=== PATIENT | male | born 1975 | race Caucasian/White ===

== ENCOUNTER 2016-11-02 21:25 | Emergency (ER) | payer BC, OTHER ==
[2016-11-02] MEDS ORDERED: LIDOCAINE HCL 1,000 MG/50 ML VIAL ONE (21:50)
[2016-11-02] MEDS ORDERED: LIDOCAINE HCL 20 ML VIAL ONE (21:50)
--- NOTE | 2016-11-02 22:08 | ERNOTE ---
Medical Problem HPI - General Chief Complaint: Laceration Time Seen by Provider: 11/02/16 21:42 Source: patient Exam Limitations: no limitations - Immun/Allergies/Home Medications Immunizations: IMMUNIZATION HX Immunizations Up to Date Yes Allergies/Adverse Reactions: Allergies No Known Allergies Allergy (Unverified 11/02/16 21:35) Home Medications: HOME MEDICATIONS Doxycycline Hyclate [Vibratab] 100 mg PO DAILY 11/02/16 [Last Taken Unknown] Ibuprofen 800 mg PO BID PRN 11/02/16 [Last Taken Unknown] Losartan Potassium [Cozaar] 50 mg PO DAILY 11/02/16 [Last Taken Unknown] traZODone HCL [Trazodone HCl] 50 mg PO HS 11/02/16 [Last Taken Unknown] - History of Present History Narrative: Pt was using a turbinated bone grinder to cut at work and it slipped and lacerated his right thigh Timing: constant Severity: moderate Modifying Factors - (Worsens): Present: movement Review of Systems - Review of Systems Constitutional: Absent: recent illness EYE: Present: no symptoms reported Musculoskeletal: Absent: muscle stiffness, joint pain, joint swelling Skin: Present: See HPI Neurological: Absent: numbness, tingling - Patient's Past Medical History Patient History - Medical: Chronic Pain Patient History - Cardiac/Respiratory: Hypertension Patient History - Cancer: No Hx of Cancer Patient History - Surgical Procedures: Orthopedic Patient History - Other: None - Social History Living Situations: spouse Abuse History: No History of abuse Psych History: No pertinent hx Smoking Status: Never smoker Have you smoked in the past 12 months: No Do you dip or chew tobacco: No Alcohol Use: occasionally Drug Use: none - Immunizations Immunizations Up to Date: Yes Physical Exam - Physical Exam General Appearance: Present: wd/wn, alert, no apparent distress Head Exam: Present: normal inspection, no evidence of injury Eye Exam: Normal inspection: bilateral Neck: Present: normal inspection, nontender Respiratory: Present: no respiratory distress, no accessory muscle use Extremity Exam: Present: normal except - - lacerations on right distal thigh Neurological Exam: Present: alert, oriented, normal mood/affect Skin Exam: Present: normal color, warm/dry, other - laceration x 2 just proximal to right knee. medial lac. 5 cm down through subQ without tendon envolvement. lateral lac 4 cm superficial. ED Progress - Vital Signs Vital Signs: Vital Signs 11/02/16 21:29 Temperature 37.1 C Pulse Rate 87 Respiratory 14 Rate Blood Pressure 141/92 O2 Sat by Pulse 97 Oximetry - Progress/Reassessment Chief Complaint: Laceration Progress:: Improved Procedures Right Distal Thigh Date and Time: LACERATION REPAIR OF RIGHT DISTAL THIGH Anesthesia: 1% Lidocaine I & D Prep: betadine prep Length of Repair/Wound (cm): 9 Wound's Depth/Shape: into subcutaneous, linear Wound Explored: clean, to base, contaminated moderately Wound Intervention: irrigated w/saline, debrided moderate Foreign body identified: metal, foreign material removed Distal NVT: neuro/vasc intact, no tendon injury Suture Size/Type: 4-0, nylon Number of Sutures: 15 Layer Closure: Simple Estimated blood loss (ml): 40 Wound Dressing: sterile dressing applied Complications: Pt tami procedure well Departure - Departure Clinical Impression: Laceration of knee without complication Qualifiers: Encounter type: initial encounter Laterality: right Qualified Code(s): S81.011A - Laceration without foreign body, right knee, initial encounter Disposition: Home Follow Up Needed Condition: Good Instructions: Laceration Care, Adult, [id number] Additional Instructions: have your stitches taken out in 7-10 days. Wash carefully twice a day and pat dry. apply antibiotic ointment for 2-3 days then use vaseline to keep soft. Referrals: Debra Arevalo FNP [Primary Care Provider] -
[2016-11-02] MEDS ORDERED: DIPHTH,PERTUSS(ACELL),TET VAC 0.5 ML VIAL IM ONE ×2 (23:09→23:15)
[2016-11-02] MEDS ORDERED: TETANUS AND DIPHTHERIA TOXOID 0.5 ML SYRG IM ONE (23:12)
[2016-11-02 23:21] VITALS: BP 148/93
== END 2016-11-02 23:30 | disposition home or self-care (01) ==
LOC: ER 21:25
PROC: 0JQN0ZZ Repair Right Lower Leg Subcutaneous Tissue and Fascia, Open Approach (ICD-10-PCS; principal; 2016-11-02)
DX: S81.011A Laceration without foreign body, right knee, initial encounter (principal); G89.29 Other chronic pain; I10 Essential (primary) hypertension; W31.82XA Contact with other commercial machinery, initial encounter; Y93.89 Activity, other specified; Y92.69 Other specified industrial and construction area as the place of occurrence of the external cause; Y99.0 Civilian activity done for income or pay; Z23 Encounter for immunization